=== PATIENT | male | born 1990 ===

== ENCOUNTER 2017-09-13 21:32 | Emergency (ER) | payer BC, OTHER ==
[2017-09-13 22:00] VITALS: RESP 18
[2017-09-13 23:26] LABS: BASO # 0.1 K/uL (0.0-0.2); BASO % 0.5 % (0.0-2.0); EOS % 0.4 % (0.0-4.0); HEMOGLOBIN 17.5 g/dL (12.0-18.0); LYMPH # 1.7 K/uL (1.0-4.3); LYMPH % 13.8 % (20.0-40.0); MEAN CELL VOLUME 88.4 fL (80.0-94.0); MEAN CORPUSCULAR HEMOGLOBIN 30.3 pg (27.0-31.0); MEAN CORPUSCULAR HGB CONC 34.3 g/dL (33.0-37.0); MEAN PLATELET VOLUME 7.6 fL (7.2-11.7); MONO # 0.8 K/uL (0.0-0.8); MONO % 6.3 % (0.0-10.0); RBC 5.76 Mil/uL (4.40-5.90); RED CELL DISTRIBUTION WIDTH 14.4 % (11.5-14.5); WHITE BLOOD COUNT 12.6 K/uL (4.8-10.8)
[2017-09-13 23:39] LABS: ALB/GLOB RATIO 1.4 (1.0-2.1); ALBUMIN 4.5 g/dL (3.5-5.0); ALT/SGPT 17 U/L (21-72); AST/SGOT 24 U/L (17-59); BLOOD UREA NITROGEN 8 mg/dL (9-20); CALCIUM 8.9 mg/dl (8.6-10.4); GFR AFRICAN-AMERICAN > 60; GFR NON-AFRICAN AMERICAN > 60
[2017-09-13 23:50] LABS: SQUAMOUS EPITHIAL < 1 /hpf (0-5); URINE BACTERIA OCC (<OCC); URINE BILIRUBIN NEGATIVE (NEGATIVE); URINE BLOOD NEGATIVE (NEGATIVE); URINE CLARITY Clear (Clear); URINE COLOR Yellow (YELLOW); URINE GLUCOSE (UA) NORMAL (Normal); URINE LEUKOCYTE ESTERASE NEG Leu/uL (Negative); URINE NITRATE NEGATIVE (NEGATIVE); URINE PROTEIN 2+ mg/dL (NEGATIVE)
[2017-09-14 00:03] LABS: BARBITURATES, UR NEGATIVE (NEGATIVE); BENZODIAZEPINES, UR NEGATIVE (NEGATIVE); OPIATES, UR NEGATIVE (NEGATIVE); PHENCYCLIDINE, UR NEGATIVE (NEGATIVE)
--- NOTE | 2017-09-14 00:11 | C.PDOC ---
History Of Present Illness Patient present to the ED after having an altercation with his parents. He states that he was in his room and was angry about breaking his headphones. He was yelling and his father then broke down the door to the room and they proceeded to have an argument. He denies any physical altercation. His parents called the police and he was told he need to "come here for a psychiatric evaluation or go to alf". Patient denies any prior psychiatric admissions or evaluations. He admits to having several beers today and denies any drug use. Time Seen by Provider: 09/13/17 22:48 Chief Complaint (Nursing): Psychiatric Evaluation History Per: Patient History/Exam Limitations: no limitations Suicide/Self Injury Attempted (Context): None Associated Symptoms: Anger Past Medical History Vital Signs: Last Vital Signs Temp 98.3 F 09/13/17 21:56 Pulse 112 H 09/13/17 21:56 Resp 18 09/13/17 21:56 BP 122/78 09/13/17 21:56 Pulse Ox 96 09/14/17 00:14 - Medical History PMH: No Chronic Diseases Denies: Chronic Kidney Disease Surgical History: No Surg Hx Family History: States: Unknown Family Hx - Social History Hx Tobacco Use: Yes Hx Alcohol Use: Yes Hx Substance Use: No - Immunization History Hx Tetanus Toxoid Vaccination: No Hx Influenza Vaccination: Yes Hx Pneumococcal Vaccination: No Review Of Systems Cardiovascular: Negative for: Chest Pain Respiratory: Negative for: Shortness of Breath Gastrointestinal: Negative for: Nausea, Vomiting, Abdominal Pain Musculoskeletal: Negative for: Neck Pain, Shoulder Pain, Back Pain Skin: Positive for: Bruising (right forearm) Neurological: Negative for: Weakness Psych: Negative for: Anxiety, Depression, Psychosis, Suicidal ideation, Withdrawal Physical Exam - Physical Exam Appears: Well, No Acute Distress Skin: Normal Color, Warm, Dry Head: Atraumatic, Normacephalic Eye(s): bilateral: Normal Inspection, PERRL, EOMI Nose: Normal Oral Mucosa: Moist Neck: Normal, Normal ROM, No Midline Cervical Tenderness Chest: Symmetrical, No Deformity Cardiovascular: Rhythm Regular Respiratory: Normal Breath Sounds, No Rales, No Rhonchi Gastrointestinal/Abdominal: Soft, No Tenderness Extremity: Bilateral: Atraumatic, Normal Color And Temperature Neurological/Psych: Oriented x3, Normal Speech, Normal Cognition, Normal Motor, Normal Sensation ED Course And Treatment - Laboratory Results Result Diagrams: 09/13/17 23:20 09/13/17 23:20 Lab Interpretation: No Acute Changes (ETOH 114, UDS + marijuana) O2 Sat by Pulse Oximetry: 96 Progress Note: Patient to be evaluated by networker. Disposition - Disposition Disposition Time: 00:26 Condition: STABLE Forms: [facility] (Azeri) - Clinical Impression Clinical Impression: Oppositional defiant behavior Physician Patient Turnover Patient Signed Over To: Hunter Ruvalcaba Handoff Comments: Pending crisis evaluation
[2017-09-14 03:07] VITALS: BP 122/88; PULSE 73; TEMP 98.3; O2SAT 98
== END 2017-09-14 03:03 | disposition home or self-care (01) ==
LOC: C.ER 21:32
DX: F63.9 Impulse disorder, unspecified (principal)
CPT/HCPCS: 80053; 81001; 82948; 85025; 99284; G0480